=== PATIENT | female | born 1985 ===

== ENCOUNTER 2017-02-17 01:30 | Emergency (ER) | payer OTHER ==
[2017-02-17 01:42] VITALS: BP 129/74; PULSE 100; RESP 16; TEMP 98.1; O2SAT 100
--- NOTE | 2017-02-17 02:13 | ED PDOC ---
HPI: General Adult Chief Complaint (Provider): L breast pain History Per: Patient History/Exam Limitations: no limitations Onset/Duration Of Symptoms: Days Current Symptoms Are (Timing): Still Present Severity: Severe Pain Scale Rating Of: 8 <MargaritaYary brennan - Last Filed: 02/17/17 02:55> <Albino Oropeza Y - Last Filed: 02/18/17 03:04> Time Seen by Provider: 02/17/17 01:45 Chief Complaint (Nursing): Breast Problem Additional Complaint(s): CC: L breast pain HPI: 31 YO female with sig PMH presents to [facility] ED for L breast pain. Per pt, the pain started on Friday and was initially mild and episodic. Over the last 24 hrs the pain worsened and from 3PM 02/16 pain has remain persistent. Pt currently rates the pain as a 8/10, sharp and throbbing in nature. Pt took a extra strength Tylenol a few hrs ago, made the pain a little better. No skin changes, no trauma, no discharge noted. Denies chest pain, dyspnea, cough, n/v/d /c and remains afebrile. Last menstrual period was 01/31/17. Pt gets occasional breast pain with menstrual cycle. PMH: denies SurgHx: denies SH: denies ETOH, smoking and illicit drug use FH: denies Allergies: NKDA Meds: Tylenol (Yary Avila) Past Medical History - Medical History PMH: No Chronic Diseases - Surgical History Surgical History: No Surg Hx - Family History Family History: States: No Known Family Hx - Living Arrangements Living Arrangements: With Family - Social History Current smoker - smoking cessation education provided: No Alcohol: None Drugs: Denies <Yary Avila - Last Filed: 02/17/17 02:55> <Albino Oropeza Y - Last Filed: 02/18/17 03:04> Vital Signs: Last Vital Signs Temp 98.1 F 02/17/17 01:40 Pulse 100 H 02/17/17 01:40 Resp 16 02/17/17 01:40 BP 129/74 02/17/17 01:40 Pulse Ox 100 02/17/17 02:59 - Allergies Allergies/Adverse Reactions: Allergies Allergy/AdvReac Type Severity Reaction Status Date / Time No Known Allergies Allergy Verified 02/17/17 02:03 Review of Systems Constitutional: Negative for: Fever, Chills Eyes: Negative for: Pain, Vision Change Cardiovascular: Negative for: Chest Pain, Palpitations Respiratory: Negative for: Cough, Shortness of Breath Gastrointestinal: Negative for: Nausea, Vomiting, Abdominal Pain, Diarrhea, Constipation Genitourinary Female: Negative for: Dysuria, Frequency Neurological: Negative for: Weakness, Numbness Psych: Negative for: Anxiety <Sa Margaritaima - Last Filed: 02/17/17 02:55> Physical Exam - Reviewed Vital Signs Reviewed: Yes - Physical Exam Appears: Positive for: No Acute Distress Head Exam: Positive for: ATRAUMATIC, NORMAL INSPECTION, NORMOCEPHALIC Skin: Positive for: Normal Color, Warm, Dry Eye Exam: Positive for: Normal appearance, EOMI Neck: Positive for: Normal, Painless ROM Cardiovascular/Chest: Positive for: Regular Rate, Rhythm, Other (Breast exam: breast are symmetrical, no skin changes noted, no erythema, no edema noted b/l. L breast tenderness to palpation, no discharge appreciated. ). Negative for: Murmur Respiratory: Positive for: Normal Breath Sounds. Negative for: Wheezing Gastrointestinal/Abdominal: Positive for: Normal Exam, Bowel Sounds, Soft. Negative for: Tenderness Extremity: Positive for: Normal ROM. Negative for: Tenderness Neurologic/Psych: Positive for: Oriented <Sa Margaritaima - Last Filed: 02/17/17 02:55> - ECG O2 Sat by Pulse Oximetry: 100 <MargaritaYary - Last Filed: 02/17/17 02:55> <Albino Oropeza Y - Last Filed: 02/18/17 03:04> - Progress ED Course And Treament: 31 YO Female with no sig PMH is seen in ED for L breast pain. -ED -Toradol IM 60mg ED test appreciated, is positive d/c toradol IM (Margarita,Yary) Medical Decision Making <Yary Avila - Last Filed: 02/17/17 02:55> <Albino Oropeza Y - Last Filed: 02/18/17 03:04> Medical Decision Making: pt w breast pain normal exam but noted to be pregant pt instructed to take vitamins denies abd pain or vag bleeding pt instructed follow up wiht obgyn as outpt (Johnna,Haviva Y) Disposition - Disposition Disposition Time: 02:51 <Yary Avila - Last Filed: 02/17/17 02:55> - Patient ED Disposition Is Patient to be Admitted: No Counseled Patient/Family Regarding: Studies Performed, Diagnosis, Need For Followup - Disposition Disposition: Routine/Home <Albino Oropeza Y - Last Filed: 02/18/17 03:04> - Clinical Impression Clinical Impression: - Disposition [facility]errals[facility]] Condition: IMPROVED Additional Instructions: Please follow up with OBGYN this week Please come back to ED with bleeding Instructions: (ED) Forms: [facility] ([place]ian)
== END 2017-02-17 03:10 | disposition home or self-care (01) ==
LOC: H.ER 01:30
DX: N64.4 Mastodynia (principal)